=== PATIENT | female | born 1980 | race Caucasian/White ===

== ENCOUNTER 2017-08-23 15:25 | Inpatient (IN) | payer MEDICAID ==
[~2017-08-23] VITALS: Ht 170.2 cm; Wt 79.4 kg
--- NOTE | 2017-08-23 15:40 | NUR ---
[id number]: new onset adult seizure, nad noted, vss, resp even and unlabored, pt put on hospital gown and monitor, seizure precaution implemented. at bs for jefferson.
[2017-08-23 15:46] LABS: BASOPHILS % (AUTO) 0.5 % (0.0-2.0); EOSINOPHILS # (AUTO) 0.7 /CMM (0.0-0.7); EOSINOPHILS % (AUTO) 7.6 % (0.0-6.0); HEMATOCRIT 42 % (33-45); HEMOGLOBIN 14.6 g/dL (11.5-14.8); LYMPHOCYTES # (AUTO) 1.2 /CMM (0.8-4.8); LYMPHOCYTES % (AUTO) 13.2 % (20.0-44.0); MEAN CORPUSCULAR HEMOGLOBIN 32 PG (26.0-33.0); MEAN CORPUSCULAR HGB CONC 35 g/dl (31.0-36.0); MEAN CORPUSCULAR VOLUME 92 fL (82-100); MONOCYTES # (AUTO) 0.7 /CMM (0.1-1.30); NEUTROPHILS # (AUTO) 6.7 /CMM (1.8-8.9); NEUTROPHILS % (AUTO) 71.7 % (43.0-81.0); PLATELET COUNT (AUTO) 347 /CMM (150-450); RDW COEFFICIENT OF VARIATION 11.7 (11.5-15.0); RED BLOOD CELL COUNT(AUTO) 4.52 MIL/uL (4.0-5.2); WHITE BLOOD COUNT (AUTO) 9.3 K/uL (4.3-11.0)
[2017-08-23] MEDS ORDERED: LEVETIRACETAM (500MG) 500 MG in IV NS 0.9% 100 ML IV ONE (16:00)
[2017-08-23 16:02] LABS: INR 0.93 (0.87-1.13); PROTHROMBIN TIME 9.7 SECS (9.5-12.7)
--- NOTE | 2017-08-23 16:02 | NUR ---
PT TO CTSCAN
[2017-08-23 16:04] LABS: ALBUMIN 3.4 g/dL (3.4-5.0); BILIRUBIN,DIRECT 0.1 mg/dL (0.0-0.2); BILIRUBIN,TOTAL 0.3 mg/dL (0.2-1.0); CREATININE 0.8 mg/dL (0.6-1.3); TOTAL PROTEIN, SERUM 7.3 g/dL (6.4-8.2)
[2017-08-23] MEDS ORDERED: LORAZEPAM INJ 2 MG/ML VIAL ONE (16:12)
[2017-08-23] MEDS ORDERED: LORAZEPAM INJ 2 MG/ML VIAL IV ONE (16:30)
--- NOTE | 2017-08-23 17:01 | NUR ---
CALLED NURSING SUP. FOR TELE BED
[2017-08-23] MEDS ORDERED: LORA10TA68 PO (17:22)
--- NOTE | 2017-08-23 17:22 | NUR ---
TELE 307-2
--- NOTE | 2017-08-23 17:30 | NUR ---
PAGED DISTRIBUTION FIELD ENGINEER PANEL IBAN VINCENT
--- NOTE | 2017-08-23 18:20 | NUR ---
PATIENT ARRIVED TO UNIT WITH A GURMOLLY. PLACED IN ROOM 307-2
[2017-08-23 18:30] VITALS: BP 126/80
--- NOTE | 2017-08-23 18:40 | NUR ---
MRSA SWAB COLLECTED. LABS NOTIFIED
--- NOTE | 2017-08-23 18:40 | NUR ---
DR CARLTON ROSENTHAL FOR ADMITTING ORDERS
--- NOTE | 2017-08-23 18:51 | NUR ---
RN ADMITTING NOTES PATIENT ARRIVED TO UNIT IN A STABLE CONDITION. VITAL SIGNS ARE STABLE. NO SIGNS AND SYMPTOMS OF DISTRESS. PAIN IN HER TONGUE DUE TO BITE ON IT DURING HER SEIZURE EPISODES. FRIEND AT BEDSIDE. BED IN LOW POSITION, LOCKED AND TWO SIDE RAILS ARE UP. CALL LIGHT WITHIN REACH FOR SAFETY. MRSA SWAB COLLECTED. WILL CONTINUE TO ASSESS AND MONITOR PATIENT
[2017-08-23] MEDS ORDERED: IV NS 0.9% 1,000 ML IV PRN (19:16)
[2017-08-23] MEDS ORDERED: Z GUARD REMEDY 2 OZ OINT TP PRN (19:30)
[2017-08-23] MEDS ORDERED: LORAZEPAM INJ 2 MG/ML VIAL IV PRN ×2 (19:30)
[2017-08-23] MEDS ORDERED: ONDANSETRON HCL/PF 4 MG/2 ML VIAL IVP PRN (19:30)
[2017-08-23] MEDS ORDERED: ACETAMINOPHEN 325 MG TABLET PO PRN (19:30)
--- NOTE | 2017-08-23 19:40 | NUR ---
TELERN FULLY AWAKE, ON SEIZURE PRECAUTIONS. ALL SIDERAILS PADDED. SAFETY PRECAUTIONS EMPHASIZED. UNDERSTOOD PLAN OF CARE AND MEDICATION REGIMEN. CALL LIGHT WITHIN REACH.
[2017-08-23] MEDS: LIDOCAINE VISCOUS 2% UD 15 ML UDC MM PRN (20:52)
--- NOTE | 2017-08-23 21:30 | NUR ---
TELERN DUE MEDS ADMINISTERED, IVF STARTED. NO SEIZURE ACTIVITY. ROOMATE AT BEDSIDE,WILL STAY WITH PATIENT TONIGHT. EATING LATE DINNER, ABLE TO SWALLOW WITHOUT DIFFICULTY. TONGUE PAINFUL VISCOUS LIDOCAINE 2% STARTED .
[2017-08-23 22:16] VITALS: BP 121/72
[2017-08-24] VITALS: BP 118/71
[2017-08-24] MEDS: LIDOCAINE VISCOUS 2% UD 15 ML UDC MM PRN ×2 (00:34→08:46)
--- NOTE | 2017-08-24 01:42 | NUR ---
TELERN REMAINS SR ON THE MONITOR, NO SEIZURE ACTIVITY. CLOSELY WATCHED.
[2017-08-24 04:00] VITALS: BP 126/65
--- NOTE | 2017-08-24 06:30 | NUR ---
TELERN NO SEIZURE ACTIVITY ENTIRE SHIFT. IVF CONTINUED.
[2017-08-24 06:31] LABS: BASOPHILS % (AUTO) 0.5 % (0.0-2.0); EOSINOPHILS # (AUTO) 0.6 /CMM (0.0-0.7); EOSINOPHILS % (AUTO) 6.2 % (0.0-6.0); HEMATOCRIT 39 % (33-45); HEMOGLOBIN 13.4 g/dL (11.5-14.8); LYMPHOCYTES # (AUTO) 1.7 /CMM (0.8-4.8); LYMPHOCYTES % (AUTO) 16.7 % (20.0-44.0); MEAN CORPUSCULAR HEMOGLOBIN 32 PG (26.0-33.0); MEAN CORPUSCULAR HGB CONC 35 g/dl (31.0-36.0); MEAN CORPUSCULAR VOLUME 93 fL (82-100); MONOCYTES # (AUTO) 0.8 /CMM (0.1-1.30); MONOCYTES % (AUTO) 7.8 % (2.0-12.0); NEUTROPHILS # (AUTO) 6.8 /CMM (1.8-8.9); NEUTROPHILS % (AUTO) 68.8 % (43.0-81.0); PLATELET COUNT (AUTO) 332 /CMM (150-450); RDW COEFFICIENT OF VARIATION 11.9 (11.5-15.0); WHITE BLOOD COUNT (AUTO) 9.9 K/uL (4.3-11.0)
[2017-08-24 06:52] LABS: THYROID STIMULATING HORMONE 1.057 uIU/mL (0.358-3.74)
[2017-08-24 06:54] LABS: ALBUMIN 3.1 g/dL (3.4-5.0); BILIRUBIN,TOTAL 0.2 mg/dL (0.2-1.0); CALCIUM, SERUM 8.6 mg/dL (8.5-10.1); CREATININE 0.7 mg/dL (0.6-1.3); MAGNESIUM 2.1 mg/dL (1.8-2.4); PHOSPHORUS 3.2 mg/dL (2.5-4.9); POTASSIUM 3.5 mmol/L (3.5-5.1); TOTAL PROTEIN, SERUM 6.7 g/dL (6.4-8.2)
[2017-08-24 07:00] VITALS: BP 115/73
--- NOTE | 2017-08-24 07:15 | NUR ---
RN OPEN NOTES RECEIVED REPORT FROM BLENDER LABORER NURSE. PATIENT IS IN BED, ALERT AND ORIENTED TO NAME, PLACE AND TIME. FRIEND AT BEDSIDE. NO SIGNS AND SYMPTOMS OF DISTRESS. DENIED PAIN. BED IN LOW POSITION, LOCKED AND TWO SIDE RAILS ARE UP. CALL LIGHT WITHIN REACH FOR SAFETY. WILL CONTINUE TO MONITOR AND ASSESS PATIENT THROUGH OUT MY SHIFT
[2017-08-24] MEDS ORDERED: LORA-259 PO (08:31)
--- NOTE | 2017-08-24 13:00 | NUR ---
DR BAJWA AT BEDSIDE. HOLD DISCHARGE. EEG STAT
--- NOTE | 2017-08-24 13:30 | NUR ---
HOLD DISCHARGE TILL DR BAJWA CLEAR PATIENT
[2017-08-24 16:00] VITALS: BP 141/86
--- NOTE | 2017-08-24 18:30 | NUR ---
DR IBAN VINCENT CALLED. OK TO DC PATIENT WITH DEBORAH
--- NOTE | 2017-08-24 19:00 | NUR ---
DR BAJWA CALLED. OK TO DC PATIENT WITH KEPPRA 500MG BID
--- NOTE | 2017-08-24 19:15 | NUR ---
COIL CONNECTOR NOTES DISCHARGE ORDER RECEIVED AND CARRIED OUT. NO SIGNS AND SYMPTOMS OF DISTRESS OR PAIN. NO SEIZURE. DISCHARGE INSTRUCTIONS EXPLAINED TO PATIENT AND PATIENT VERBALIZED UNDERSTANDING. ALL PERSONAL BELONGING WITH PATIENT AT TIME OF DISCHARGE. BOTH DISCHARGE FORM AND PERSONAL BELONGING FORM SIGNED BY PATIENT AT TIME OF DISCHARGE. PRESCRIPTION GAVE TO PATIENT. NO NEW CONCERNS UPON DISCHARGE. IV SITE REMOVED. ID BAND REMOVED. PATIENT PICKED UP BY HER FRIEND AND TRANSFERRED HOME VIA A PRIVATE CAR.
[2017-08-24] MEDS ORDERED: LEVETIRACETAM (250 MG) 250 MG TABLET PO SCH (21:00)
== END 2017-08-24 19:15 | disposition home or self-care (01) | DRG 774 ==
LOC: ER 15:27 → TELE 17:54 → MED 08-24 08:48
PROVIDERS: ADMIT Nurse Practitioner Acute Care; ATTEND Nurse Practitioner Acute Care
DX: F10.239 Alcohol dependence with withdrawal, unspecified (principal); F14.90 Cocaine use, unspecified, uncomplicated; R56.9 Unspecified convulsions; F17.200 Nicotine dependence, unspecified, uncomplicated; Y90.0 Blood alcohol level of less than 20 mg/100 ml; F19.10 Other psychoactive substance abuse, uncomplicated; D72.828 Other elevated white blood cell count
CPT/HCPCS: 36415; 70450-TC; 71010-TC; 72125-TC; 80048-TC; 80053-TC; 80061-TC; 80076-TC; 80305; 82962-TC; 83735-TC; 84100-TC; 84443-TC; 84703-TC; 85025-TC; 85730-TC; 87081-TC; 95819-TC; A4606; G0480; J1953; J2060; J7030; Z7610